=== PATIENT | male | born 1990 | race Caucasian/White ===

== ENCOUNTER 2017-12-06 22:16 | Emergency (ER) | payer BC ==
[~2017-12-06] VITALS: Ht 177.8 cm; Wt 90.7 kg
--- NOTE | ~2017-12-06 | EKG ---
[place], [place] ELECTROCARDIOGRAM REPORT NAME: JACKY WYMAN UNIT #: [id number] ROOM: DOCTOR: MERCEDES JUNIOR,KEELY BIRTHDATE: [birth year] DOS: 12/06/2017 TIME: 2300 hours IMPRESSION: 1. Sinus rhythm. 2. Sinus tachycardia. 3. Diffuse ST elevation, consider pericarditis versus anterior injury. 4. Normal QT interval. KEELY LONG MD CM:EKGRPT:ELECTROCARDIOGRAM REPORT [id number] KEELY LONG MD
[~2017-12-06 22:16] MED LIST: CIPRO500 MG PO; IBUPROFEN200 M1 PO; KEFLEX500 MG PO; MOTRIN800 MG PO
[2017-12-06 22:50] LABS: BASO % 0.3 % (0.0-1.0); EOS # 0.1 10*3/uL (0.0-0.4); EOS % 0.6 % (1.0-4.0); HEMATOCRIT 42.6 % (42.0-52.0); HEMOGLOBIN 14.9 g/dl (14.0-18.0); LYMPH # 1.7 10*3/uL (1.3-4.4); LYMPH % 17.7 % (27.0-41.0); MEAN CELL VOLUME 82.6 fl (80.0-94.0); MEAN CORPUSCULAR HGB 28.9 pg (27.0-31.0); MEAN PLATELET VOLUME 10.5 fl (9.6-12.3); MONO # 0.6 10*3/uL (0.1-1.0); MONO % 6.3 % (3.0-9.0); NEUT % 74.6 % (47.0-73.0); PLATELET COUNT AUTOMATED 163 10*3/uL (130-400); RED BLOOD COUNT 5.16 10*6/uL (4.50-5.90); RED CELL DISTRI WIDTH 12.5 % (0-14.5); WHITE BLOOD COUNT 9.4 10*3/uL (4.8-10.8)
[2017-12-06 23:05] LABS: ACETAMINOPHEN (TYLENOL) < 2.0 ug/ml (10-30); ALBUMIN 3.9 gm/dl (3.1-4.5); ALKALINE PHOSPHATASE 104 U/L (45-117); BUN 18 mg/dl (7-24); CHLORIDE 109 mmol/L (98-107); ETHYL ALCOHOL < 3.0 mg/dl (<3); SGOT/AST 28 IU/L (3-35); SGPT/ALT 52 U/L (12-78); SODIUM 143 mmol/L (136-145); TOTAL PROTEIN 7.4 gm/dL (6.4-8.2)
[2017-12-06 23:52] LABS: URINE AMPHETAMINES < 1000 (1000ng/ml); URINE BARBITURATES < 200 (200ng/ml); URINE BENZODIAZEPINES < 200 (200ng/ml); URINE CANNABINOIDS (THC) < 50 (50ng/ml); URINE COCAINE < 300 (300ng/ml); URINE METHADONE < 300 (300ng/ml); URINE OPIATES < 300 (300ng/ml); URINE PHENCYCLIDINE < 25 (25ng/ml)
[2017-12-07 01:54] LABS: BILIRUBIN NEGATIVE (NEGATIVE); BLOOD TRACE-LYSED (NEGATIVE); CLARITY SL CLOUDY (CLEAR); COLOR YELLOW (YELLOW); GLUCOSE NEGATIVE (NEGATIVE); KETONE TRACE (NEGATIVE); LEUKO ESTERASE NEGATIVE (NEGATIVE); NITRITE NEGATIVE (NEGATIVE); SPECIFIC GRAVITY 1.025 (1.005-1.030); UROBILINOGEN 0.2 E.U./dl (0.2-1.0)
[2017-12-07 02:18] LABS: MUCOUS TRACE; WBC 0-2 wbc/hpf (0-5)
== END 2017-12-07 08:43 | disposition short-term general hospital (02) ==
LOC: ED 22:16
PROVIDERS: Emergency Medicine Emergency Medical Services
DX: F32.9 Major depressive disorder, single episode, unspecified (principal); R45.851 Suicidal ideations

== ENCOUNTER 2018-06-06 17:51 | Emergency (ER) | payer SELFPAY ==
[~2018-06-06] VITALS: Ht 177.8 cm; Wt 99.8 kg
[2018-06-06] MEDS ORDERED: NAPROSYN500 MG PO (17:58)
[2018-06-06] MEDS ORDERED: CHLORZOXAZONE500 M2 PO (17:58)
== END 2018-06-06 19:38 | disposition home or self-care (01) ==
LOC: ED 17:51
DX: M54.42 Lumbago with sciatica, left side (principal)

== ENCOUNTER 2018-06-27 15:07 | Emergency (ER) | payer OTHER ==
[~2018-06-27] VITALS: Ht 177.8 cm; Wt 108.0 kg
[~2018-06-27 15:07] MED LIST changes: +CHLORZOXAZONE500 M2 PO; +NAPROSYN500 MG PO
[2018-06-27] MEDS ORDERED: CHLORZOXAZONE500 M2 PO (15:43)
[2018-06-27] MEDS ORDERED: NAPROSYN500 MG PO (15:43)
== END 2018-06-27 16:42 | disposition home or self-care (01) ==
LOC: ED 15:07
DX: S01.01XA Laceration without foreign body of scalp, initial encounter (principal); R03.0 Elevated blood-pressure reading, without diagnosis of hypertension; M54.2 Cervicalgia; M54.9 Dorsalgia, unspecified; V89.2XXA Person injured in unspecified motor-vehicle accident, traffic, initial encounter; Y93.I9 Activity, other involving external motion; Y92.488 Other paved roadways as the place of occurrence of the external cause; Y99.8 Other external cause status

== ENCOUNTER 2024-01-06 13:31 | Emergency (ER) | payer OTHER ==
[~2024-01-06] VITALS: Ht 177.8 cm; Wt 113.4 kg
== END 2024-01-06 14:52 | disposition home or self-care (01) ==
LOC: ED 13:31
DX: S01.511A Laceration without foreign body of lip, initial encounter (principal); W22.8XXA Striking against or struck by other objects, initial encounter; Y93.89 Activity, other specified; Y92.89 Other specified places as the place of occurrence of the external cause; Y99.0 Civilian activity done for income or pay

== ENCOUNTER 2025-03-01 15:36 | Emergency (ER) | payer SELFPAY ==
[~2025-03-01] VITALS: Wt 106.6 kg
[2025-03-01] MEDS ORDERED: Doxycycline Hyclate 100 MG CAPSULE PO ONE (16:15)
[2025-03-01] MEDS ORDERED: Dexamethasone Sodium Phospha 20 MG/5 ML VIAL IM ONE (16:15)
[2025-03-01] MEDS ORDERED: VIBRAMYCIN100 MG PO (16:16)
[2025-03-01] MEDS ORDERED: PREDNISONE20 M1 PO (16:16)
[2025-03-01] MEDS ORDERED: Water, Sterile 10 ML VIAL ONE (16:43)
== END 2025-03-01 16:30 | disposition home or self-care (01) ==
LOC: ED 15:36
DX: S70.362A Insect bite (nonvenomous), left thigh, initial encounter (principal); A69.20 Lyme disease, unspecified; W57.XXXA Bitten or stung by nonvenomous insect and other nonvenomous arthropods, initial encounter; Y93.89 Activity, other specified; Y92.89 Other specified places as the place of occurrence of the external cause; Y99.8 Other external cause status

== ENCOUNTER 2025-06-15 22:10 | Emergency (ER) | payer BC ==
[~2025-06-15] VITALS: Ht 177.8 cm; Wt 106.6 kg
[~2025-06-15 22:10] MED LIST changes: +PREDNISONE20 M1 PO; +VIBRAMYCIN100 MG PO
[2025-06-15 23:05] LABS: BASO # 0.0 10*3/uL (0.0-0.1); BASO % 0.5 % (0.0-1.0); EOS # 0.1 10*3/uL (0.0-0.4); EOS % 1.8 % (1.0-4.0); MEAN CELL VOLUME 81.2 fl (80.0-94.0); MEAN CORPUSCULAR HGB 29.3 pg (27.0-31.0); MEAN PLATELET VOLUME 9.9 fl (9.6-12.3); MONO # 0.3 10*3/uL (0.1-1.0); MONO % 7.8 % (3.0-9.0); NEUT # 2.3 10*3/uL (2.3-7.9); NEUT % 56.5 % (47.0-73.0); NUCLEATED RED BLOOD CELL 0.0 % (0.0-0.0); NUCLEATED RED BLOOD CELL 0.0 10*3/uL (0.0-0.0); PLATELET COUNT AUTOMATED 118 10*3/uL (130-400); RED CELL DISTRI WIDTH 13.1 % (0-14.5)
== END 2025-06-15 23:34 | disposition home or self-care (01) ==
LOC: ED 22:10
PROVIDERS: Internal Medicine
DX: D69.6 Thrombocytopenia, unspecified (principal); R53.83 Other fatigue

== ENCOUNTER → 2025-07-22 | Outpatient (CLI) | payer BC | END | disposition home or self-care (01) | LOC: CARD 10:27 | PROVIDERS: ATTEND Family Medicine | DX: R07.89 Other chest pain (principal) ==